=== PATIENT | male | born 1960 | race Two or more races ===

== ENCOUNTER → 2021-07-06 08:00 | Outpatient (CLI) | payer OTHER | END | disposition home or self-care (01) | LOC: LAB 08:00 → ADM 13:15 → EDSTATUS 07-10 13:15 → AMB-ENDOS 07-10 13:15 | PROVIDERS: ATTEND Surgery | DX: U07.1 COVID-19 (principal); D12.2 Benign neoplasm of ascending colon; D12.6 Benign neoplasm of colon, unspecified; R19.4 Change in bowel habit ==

== ENCOUNTER 2021-11-10 06:35 | Day surgery (SDC) | payer OTHER | END 2021-11-10 10:10 | disposition home or self-care (01) | LOC: AMB-ENDOS 06:35 | PROVIDERS: ATTEND Surgery | DX: D12.2 Benign neoplasm of ascending colon (principal); R19.4 Change in bowel habit; Z20.822 Contact with and (suspected) exposure to COVID-19; E10.9 Type 1 diabetes mellitus without complications; E78.5 Hyperlipidemia, unspecified ==

== ENCOUNTER 2022-01-04 11:55 | Inpatient (IN) | payer OTHER ==
[~2022-01-04] VITALS: Ht 172.7 cm; Wt 81.6 kg
[2022-01-04] MEDS ORDERED: OMEPRAZOLE40 MG PO (13:19)
[2022-01-04] MEDS ORDERED: GLYXAMBI 10 MG1 EACH PO (13:19)
== END 2022-01-11 17:01 | disposition home or self-care (01) | DRG 331 ==
LOC: O/R 01-09 05:48 → SURH 01-09 07:00 → SURG 01-09 11:19 → SURH 01-09 12:00 → SURG 01-11 17:01
PROVIDERS: ADMIT Surgery; ATTEND Surgery
PROC: 07BB4ZZ Excision of Mesenteric Lymphatic, Percutaneous Endoscopic Approach (ICD-10-PCS; 2022-01-09)
PROC: 3E0F7SF Introduction of Other Gas into Respiratory Tract, Via Natural or Artificial Opening (ICD-10-PCS; 2022-01-09)
PROC: 0DTF4ZZ Resection of Right Large Intestine, Percutaneous Endoscopic Approach (ICD-10-PCS; principal; 2022-01-09 07:00)
DX: D12.6 Benign neoplasm of colon, unspecified (principal); R59.0 Localized enlarged lymph nodes; R19.4 Change in bowel habit; E11.9 Type 2 diabetes mellitus without complications; Z79.84 Long term (current) use of oral hypoglycemic drugs